=== PATIENT | male | born 1980 | race Caucasian/White ===

== ENCOUNTER 2018-03-14 18:32 | Observation (INO) ==
[2018-03-14] MEDS ORDERED: Naloxone 0.4 MG/ML INJ IVP PRN (20:24)
--- NOTE | 2018-03-14 20:47 | Internal Med History&Physical ---
<Shankar Kaplan - Last Filed: 03/14/18 23:08> Date of Encounter: 03/14/18 Time of Encounter: 20:47 Internal Medicine - H&P: HPI Chief complaint: Dark colored urine Admitted From: Emergency Dept Plans for Post Hospital Care: Home History of present illness: Mr. Scruggs is a 37 year old male with history of hypertension, IV drug use, self history of schizophrenia who presents to the emergency department with 4 day history of dark-colored urine. He says that his urine has appeared the color of iodine for the past 4 days which is atypical for him. This has been associated with vague right sided abdominal pain which radiated to the right flank, and some mild nausea and heartburn. He has also had some vomiting, however he says this is not totally atypical for him. These concerns were initially elicited when he was picked up by [employer] while attempting to steal a car. His pain is mild in nature, and not particularly irritating. He states that he has had very poor appetite in the past week, and while he has had no trouble drinking fluids, he is homeless and has poor access to them. He does not admit to difficulty eating or holding food down. He does feel that his skin has had a yellow discoloration for the past week, which he believes in improving. His only other acute complaints at this time are a feeling of drowsiness which he feels has been present for two to three days. The patient does have a history of IVDU, and says that he was had not used IV drugs for 4 years until about 4 days ago when he used IV meth for the first time. In addition to this, the patient says that he has a history of heavy alcohol consumption for the past 15 years. Although he says that he hasn't had a drink in about 5 days, he says that on a normal day he has at least about 6 beers. He says that he and his girlfriend are homeless, and have been so for the past two months. He has no sick contacts. In the ED at [facility], he received labs which demonstrated sodium 134 potassium 5.8 chloride 102 bicarbonate 27 nightly 7 creatinine 1.07 glucose 80. CBC was essentially normal, however hepatic panel demonstrated AST 174 and ALTs greater than 500. His albumin was 3.3 and hit a bilirubin of 8.7 with direct bilirubin 4.5 and indirect 4.2. The patient additionally had pneumonia level LIX and INR 1.3. His UA demonstrated large bilirubin and granular casts. A CT of his abdomen and pelvis demonstrated a contracted gallbladder with possible mild intrahepatic biliary prominence. He was transferred to [facility] for further workup and observation. Past Med Surg Social Fam HX - Past Medical History Medical history: hypertension, other Additional medical history: GOUT Psychiatric history: anxiety, panic disorder - Past Surgical History Additional surgical history: PE tubes - Social History Smoking Status: Current every day smoker Smokeless Tobacco Status: No Alcohol use: occasionally, recent Drug use: methamphetamine - Family History Maternal Grandmother Hx Family Cardiac Disorders: Yes Internal Medicine - H&P: Meds Buprenorphine HCl [Subutex] 2 mg SL BID 12/07/15 [History] Escitalopram [Lexapro] 10 mg PO DAILY 03/14/18 [History] 3 Allergy/AdvReac Type Severity Reaction Status Date / Time Amoxicillin Allergy Anaphylaxis Verified 05/02/16 20:57 codeine Allergy Nausea Verified 05/02/16 20:57 Penicillins [PCN] Allergy Anaphylaxis Verified 05/02/16 20:57 All Systems PM: A 10-system review of systems was performed and is negative for pertinent findings except as documented above in the HPI. Review of systems: Constitutional: Denies fevers, chills, weight loss. Admits to generalized fatigue Head/Neck: Denies VO, neck stiffness EENT: Denies vision changes/blurriness, rhinorrhea, congestion, sore throat CVS: Denies chest pain, palpitations, BENITO, orthopnea, edema, PND Pulm: Denies SOB, cough, sputum, hemoptysis, wheezing GI: Denies diarrhea, constipation, melena, hematemasis. Admits to some abdominal pain, nausea and some limited vomiting. : Denies dysuria, increased frequency, urgency, hematuria. Admits to dark colored urine Heme: Denies ease of bleeding or bruising MSK: Denies joint pain, limited ROM Skin: Denies rashes, ulcers, color changes Neuro: Denies VO, paresthesias, focal deficits, ataxia - Constitutional Vitals: Temp Pulse Resp BP Pulse Ox 97.7 F 73 18 141/83 96 03/14/18 20:10 03/14/18 20:10 03/14/18 20:10 03/14/18 20:10 03/14/18 20:10 Exam: Gen: Vitals noted. No acute distress. Skin: Jaundiced appearing, no rash or petechiae HEENT: Normocephalic, atraumatic. Marked scleral icterus Neck: Supple. No adenopathy. Cardiac: RRR, no murmur, +S1/S2 Pulmonary: CTA bilaterally, no wheezes, rales or rhonchi, equal chest expansion Abdomen: soft, nontender, no guarding Back: Nontender throughout. MSK: ROM intact, no joint swelling noted Extremities: no BLE edema, nontender calf, no cyanosis or clubbing Neuro: moves all extremities, no focal deficits. A&Ox3 Psych: Appropriate mood and behavior Internal Med - H&P Results - Labs CBC & Chem 7: 03/14/18 21:06 - Assessment and plan (1) Elevated LFTs Current Visit: Yes Status: Acute Assessment and plan: Elevated liver enzymes, acute Suspected hepatitis, unclear etiology Etiology may be secondary to viral hepatitis versus alcoholic hepatitis Alcoholic hepatitis is less likely considering AST low and ALT high AST 174, ALT >500, Alk Phos 88, Total Bilirubin 8.7, Direct Bili 4.5, Indirect Bili 4.2. Inr 1.3. Ammonia 59 Initial Acetaminophen and Salicylate labs are negative for elevation CT Abdomen/Pelvis Demonstrates gallbladder contraction, possible mild intrahepatic biliary prominence Plan -Continue supportive care. There is no apparent fulminant hepatic failure at this time. -Ivf, recheck LFTs. NPO At midnight -Lactulose 20mg BID for hyperammonemia -GI consult in AM for management and possible MRCP/ERCP (2) Hyperkalemia Current Visit: Yes Status: Acute Assessment and plan: Hyperkalemia, unclear etiology Patient does not appear to have any acute kidney injury at this time, however unknown baseline function He received 2L bolus in the ED at [facility], we will continue maintenance fluids at this time Recheck BMP this evening, and we will give lactulose for Ammonia. Pending results and potassium level, kayexelate may be indicated At this time, he has no cardiac complications continue to monitor (3) Abdominal pain Current Visit: Yes Status: Acute Assessment and plan: Right upper quadrant abdominal pain CT abd/pelvis has nonspecific gallbladder findings We will plan for serial abdominal exams at this time and monitor GI consult in the morning, consider Surgical consult if necessary. Qualifiers: Abdominal location: right upper quadrant Qualified Code(s): R10.11 - Right upper quadrant pain (4) IVDU (intravenous drug user) Current Visit: Yes Status: Acute Assessment and plan: History of IVDU Currently no obvious indication of systemic infection, however he is high risk of Viral hepatitis and HIV Serology is currently pending We will monitor vitals, watch for evidence of infection Social work consult (5) Alcoholism Current Visit: Yes Status: Acute Assessment and plan: History of heavy alcohol use, >6 beers per day according to patient Last drink was 5 days ago. Patient has no known history of DTs We will start a CIWA protocol, nutritional supplementation (6) Depression Current Visit: Yes Status: Acute Assessment and plan: Depression with psychotic features according to patient He mentions auditory hallucinations which are somewhat chronic to him We will continue home med at this time, consider psych consult if the patient continues to worsen Qualifiers: Depression Type: unspecified Qualified Code(s): F32.9 - Major depressive disorder, single episode, unspecified (7) Hypertension Current Visit: Yes Status: Acute Assessment and plan: Stable Qualifiers: Hypertension type: essential hypertension Qualified Code(s): I10 - Essential (primary) hypertension (8) DVT prophylaxis Current Visit: Yes Status: Acute Assessment and plan: SQ Heparin - Time Spent With Patient Total time spent is greater than 50% in coordination of care (as documented) at patient's floor/unit and/or counseling patient: <Juan Francisco Cheema - Last Filed: 03/15/18 08:05> Date of Encounter: 03/15/18 Internal Medicine - H&P: HPI History of present illness: Mr. Scruggs is a 37 year old male All Systems PM: A 10-system review of systems was performed and is negative for pertinent findings except as documented above in the HPI. - Constitutional Vitals: Temp Pulse Resp BP Pulse Ox 98.1 F 48 18 135/89 97 03/15/18 03:07 03/15/18 03:07 03/15/18 03:07 03/15/18 03:07 03/15/18 03:07 Internal Med - H&P Results - Labs CBC & Chem 7: 03/15/18 03:59 03/15/18 03:59 Labs: Short CBC 03/15/18 Range/Units 03:59 WBC 7.3 (4.3-11.1) K/mcL Hgb 14.7 (12.9-16.9) g/dL Hct 42.5 (37.5-50.1) % Plt Count 253 (140-400) K/mcL Neutrophils # 3.0 (1.6-8.9) K/mcL BMP 03/14/18 03/14/18 03/15/18 21:06 22:50 03:59 Sodium Cancelled 133 L 137 Potassium Cancelled 3.9 D 4.3 Chloride Cancelled 102 103 Carbon Dioxide Cancelled 25 28 BUN Cancelled 7 7 Creatinine Cancelled 1.00 1.06 Glucose Cancelled 106 H 78 Calcium Cancelled 8.6 8.5 L Cardiac Enzymes 03/14/18 Range/Units 21:06 Troponin I < 0.03 (< 0.04) ng/mL Liver Function 03/15/18 03/15/18 Range/Units 03:59 03:59 Total Bilirubin 9.8 H (0.3-1.0) mg/dL Direct Bilirubin 6.2 H (0.0-0.2) mg/dL GGT 88 H (2-30) Units/L AST 119 H (13-39) Units/L ALT > 500 H (7-52) Units/L Alkaline Phosphatase 92 (34-104) Units/L Albumin 3.0 L (3.5-5.7) g/dL - Assessment and plan (1) Elevated LFTs Current Visit: Yes Status: Inactive (2) Abdominal pain Current Visit: Yes Status: Inactive Qualifiers: Abdominal location: right upper quadrant Qualified Code(s): R10.11 - Right upper quadrant pain (3) Hyperkalemia Current Visit: Yes Status: Acute (4) IVDU (intravenous drug user) Current Visit: Yes Status: Acute (5) Alcoholism Current Visit: Yes Status: Acute (6) Hypertension Current Visit: Yes Status: Acute Qualifiers: Hypertension type: essential hypertension Qualified Code(s): I10 - Essential (primary) hypertension (7) Depression Current Visit: Yes Status: Acute Qualifiers: Depression Type: unspecified Qualified Code(s): F32.9 - Major depressive disorder, single episode, unspecified (8) DVT prophylaxis Current Visit: Yes Status: Acute - Time Spent With Patient Total time spent is greater than 50% in coordination of care (as documented) at patient's floor/unit and/or counseling patient: - Attending Attestation Patient seen and examined. Charts including labs were reviewed. Case discussed with resident. Agree with assessment and plan. We will admit and continue supportive care for possible acute hepatitis in the setting of recent IV drug abuse. Consider GI consult for the morning.
[2018-03-14] MEDS ORDERED: *HR* LORazepam 2 MG/ML VIAL IVP PRN ×2 (20:56)
[2018-03-14] MEDS ORDERED: *HR* Promethazine 25 MG/ML VIAL IVP PRN (20:56)
[2018-03-14] MEDS ORDERED: 0.9 % Sodium Chloride 1,000 ML IV SCH (21:00)
[2018-03-14] MEDS: *HR* Heparin 5,000 UNIT/ML VIAL SQ SCH (21:51)
[2018-03-14] MEDS: 0.9 % Sodium Chloride 1,000 ML IV SCH (21:51)
[2018-03-14] MEDS: Lactulose Oral Soln 20 GM/30 ML UDC PO SCH (21:51)
[2018-03-14 22:04] LABS: HIV-1&2 Antibody & p24 Ag Nonreactive (Nonreactive); Hepatitis B Surface Antigen Nonreactive (Nonreactive)
[2018-03-14] MEDS: *HR* Buprenorphine HCl 2 MG SUBLINGUAL TABLET SL SCH (22:19)
[2018-03-14 23:27] LABS: BUN/Creatinine Ratio 7 (6-26); Blood Urea Nitrogen 7 mg/dL (6-20); Calcium 8.6 mg/dL (8.6-10.3); Carbon Dioxide 25 mEq/L (23-29); Chloride 102 mEq/L (98-107); Glucose 106 mg/dL (70-105); Osmolality,Calculated 274 (280-300); Potassium 3.9 mEq/L (3.5-5.1); Sodium 133 mEq/L (136-145); eGFR For Non-African Americans > 60 (> 60)
[2018-03-15 04:26] LABS: Basophils # 0.1 K/mcL (0.0-0.2); Basophils % 1.5 %; Eosinophils # 0.5 K/mcL (0.0-0.6); Eosinophils % 6.7 %; Hematocrit 42.5 % (37.5-50.1); Hemoglobin 14.7 g/dL (12.9-16.9); Immature Granulocytes % 0.6 % (0-4); Lymphocytes % 40.6 %; Mean Corpuscular HGB Conc 34.6 g/dL (31.6-35.5); Mean Corpuscular Hemoglobin 31.1 pg (28.0-33.3); Mean Corpuscular Volume 89.9 fL (83.0-100.0); Mean Platelet Volume 11.4 fL (9.4-12.4); Monocytes # 0.7 K/mcL (0.0-1.3); Monocytes % 9.4 %; Platelet Count 253 K/mcL (140-400); Red Blood Count 4.73 M/mcL (4.19-5.50); Segmented Neutrophils % 41.2 %
[2018-03-15 04:50] LABS: Gamma Glutamyl Transpeptidase 88 Units/L (2-30)
[2018-03-15 04:51] LABS: Alanine Aminotransferase > 500 Units/L (7-52); Alkaline Phosphatase 92 Units/L (34-104); Aspartate Amino Transferase 119 Units/L (13-39); BUN/Creatinine Ratio 7 (6-26); Bilirubin,Direct 6.2 mg/dL (0.0-0.2); Bilirubin,Indirect 3.6 mg/dL (0.0-1.2); Bilirubin,Total 9.8 mg/dL (0.3-1.0); Blood Urea Nitrogen 7 mg/dL (6-20); Calcium 8.5 mg/dL (8.6-10.3); Carbon Dioxide 28 mEq/L (23-29); Chloride 103 mEq/L (98-107); Globulin 3.1 g/dL (2.4-3.5); Glucose 78 mg/dL (70-105); Magnesium 1.8 mg/dL (1.6-2.6); Osmolality,Calculated 281 (280-300); Potassium 4.3 mEq/L (3.5-5.1); Sodium 137 mEq/L (136-145); Total Protein 6.1 g/dL (6.4-8.9); eGFR For Non-African Americans > 60 (> 60)
[2018-03-15 05:02] LABS: Hepatitis A Antibody IgM Reactive (Nonreactive)
[2018-03-15] MEDS: 0.9 % Sodium Chloride 1,000 ML IV SCH (05:55)
[2018-03-15] MEDS: *HR* Heparin 5,000 UNIT/ML VIAL SQ SCH ×3 (05:56→21:02)
[2018-03-15 06:03] LABS: Hepatitis B Core IgM Reactive (Nonreactive)
[2018-03-15 06:04] LABS: Hepatitis C Virus Antibody Reactive (Nonreactive)
[2018-03-15 08:22] LABS: INR 1.2; Prothrombin Time 13.2 Seconds (9.4-12.1)
[2018-03-15] MEDS: Lactulose Oral Soln 20 GM/30 ML UDC PO SCH ×2 (08:36→21:02)
[2018-03-15] MEDS: *HR* Buprenorphine HCl 2 MG SUBLINGUAL TABLET SL SCH ×2 (08:37→21:02)
--- NOTE | 2018-03-15 09:46 | Gastroenterology Consult Note ---
<Annette Pascual - Last Filed: 03/15/18 14:01> Date of Encounter: 03/15/18 Time of Encounter: 09:38 - Assessment and plan (2) Abdominal pain Status: Acute Assessment and plan: Right upper quadrant abdominal pain intermittent for 3 months. Likely secondary to acute hepatitis and chronic hepatitis. abdominal CT demonstrate gallbladder protracted with possible mild intrahepatic biliary prominence -See plan above Qualifiers: Abdominal location: epigastric Qualified Code(s): R10.13 - Epigastric pain (3) IVDU (intravenous drug user) Status: Acute Assessment and plan: current IV drug user of methamphetamine which he recently started. He was clean for a while because he previously injected heroin for about 8 years. -He was counseled on cessation of drug use (4) Alcoholism Status: Acute Assessment and plan: He is the current drinker since he was 14 years old of 6 to 20 beers a day. -He is on CIWA protocol. Counseled on alcohol cessation. Continue thymine. (5) Hepatitis Status: Acute Assessment and plan: 37-year-old male with history of IV drug use reported 5 days of dark urine. Additional fatigue, jaundice, scleral icterus. 3 months of intermittent right upper quadrant pain. This is likely acute hepatitis A infection. Hepatitis A positive hepatitis B core IgM Ab positive hepatitis C Ab positive AST 119, ALT>500, alkaline phosphatase 92, PT 13.2, INR 1.2 bilirubin 9.8, direct bilirubin 6.2, indirect bilirubin 3.[address] demonstrate gallbladder protracted with possible mild intrahepatic biliary prominence examination: scleral icterus, jaundice, soft abdomen, nontender, bowel sounds present plan: recommend symptomatic management, regular diet, IV fluids - Time Spent With Patient Total time spent is greater than 50% in coordination of care (as documented) at patient's floor/unit and/or counseling patient: GI History of Present Illness - Data of Consult Consult date: 03/15/18 Requesting Physician: Alexey Lancaster MD - Consult Narrative Reason for consult: Hepatitis ABC positive History of present illness: Mr. Scruggs is a 37 year old male with past medical history of IV drug use who presented to [facility] complaining of darker urine. Gastroenterology was consulted due to labs showing hepatitis A, B, C positive. Upon examination the patient reported that the past 5 days he has noticed he has had darker urine. He has had intermittent right upper quadrant pain for the past 3 to 4 months. Nothing exacerbates the pain. He is also noticed skin discoloration. Admitted increased fatigue. Denies fever, chills, nausea, vomiting, diarrhea, melena, hematachezia, hematemasis. He has never had hepatitis A before and has not had contact with anyone whom has it. He is current IV drug user of methamphetamine which he recently started. He was clean for a while because he previously injected heroin for about 8 years. He is the current drinker since he was 14 years old of 6 to 20 beers a day. His current smoker of about 5 cigarettes a day. Past Med Surg Social Fam HX - Past Medical History Attestation: Yes The following information was validated with the patient. Source: patient Medical history: hypertension, other Additional medical history: GOUT Psychiatric history: anxiety, panic disorder - Past Surgical History Surgical History: no surgical history Additional surgical history: PE tubes - Social History Smoking Status: Current every day smoker Packs per day: 1/3 pack Smokeless Tobacco Status: No Alcohol use: heavy, recent Drug use: methamphetamine, IV Drug Use - Family History Maternal Grandmother Hx Family Cardiac Disorders: Yes - Gastrointestinal Gastrointestinal: Present: abdominal pain. Absent: constipation, diarrhea, hematemesis, hematochezia, melena, nausea, vomiting - Constitutional Constitutional: fatigue, no anorexia, no fever(s) - EENT Eyes: Yellow Discoloration Nose, mouth and throat: Absent: dysphagia - Cardiovascular Cardiovascular ROS: Absent: chest pain, palpitations - Respiratory Respiratory IM: Absent: cough, dyspnea - Genitourinary Genitourinary: Present: change in color (Dark urine). Absent: Urinary frequency - Neurological ROS Neurological GI: Absent: confusion, dizziness, headache(s) - Musculoskeletal Musculoskeletal ROS GI: Absent: back pain - Integumentary Integumentary GI: Present: jaundice. Absent: pruritis, rash - Psychiatric ROS Psychiatric GI: Present: anxiety - Endocrine Endocrine IM: Present: fatigue - Constitutional Vitals: Temp Pulse Resp BP Pulse Ox 98.1 F 59 18 126/90 97 03/15/18 08:03 03/15/18 08:03 03/15/18 08:03 03/15/18 08:03 03/15/18 08:03 Exam: Gen.: Vitals noted. No acute distress. AAOx3 HEENT: oropharynx clear, Normocephalic, atraumatic Neck: Supple. No adenopathy. Cardiac: RRR, no murmur, +S1/S2 Pulmonary: CTA bilaterally, no wheezes, rales or rhonchi, equal chest expansion Abdomen: soft, nontender, Bowel sounds noted, no guarding MSK: ROM intact, no joint swelling noted Extremities: no BLE edema, nontender calf, no cyanosis or clubbing Neuro: A&Ox3, moves all extremities, no focal deficits Psych: Appropriate mood and behavior Results - Labs CBC & Chem 7: 03/15/18 03:59 03/15/18 03:59 Labs: Last Result Calcium 8.5 mg/dL (8.6-10.3) L 03/15/18 03:59 Troponin I < 0.03 ng/mL (< 0.04) 03/14/18 21:06 Entire Visit Hgb 14.7 g/dL (12.9-16.9) 03/15/18 03:59 Hct 42.5 % (37.5-50.1) 03/15/18 03:59 PT 13.2 Seconds (9.4-12.1) H 03/15/18 08:00 Total Bilirubin 9.8 mg/dL (0.3-1.0) H 03/15/18 03:59 AST 119 Units/L (13-39) H 03/15/18 03:59 ALT > 500 Units/L (7-52) H 03/15/18 03:59 - ABG ABG results: PT/INR, D-dimer PT 13.2 Seconds (9.4-12.1) H 03/15/18 08:00 Consult Discharge Plan - Plan Instructions: Alcohol Dependence (GEN) Additional Instructions: G.I. will contact PT with the Follow up APT. Referrals: Salma Marie [Other] - 03/24/18 1:15 pm Mark Cruz MD [Partnered Physician] - (Web request sent on 03/16.) NONE,PCP [Primary Care Provider] - 03/24/18 1:15 pm (Scheduled an appointment with Dr. Moira Marsh in [place], [place] for patient hospital appointment) Prescriptions: RX: Folic Acid 1 mg PO DAILY #30 tablet RX: Gabapentin [Neurontin] 100 mg PO TID 15 Days #45 capsule RX: Thiamine (B-1) [Vitamin B-1] 100 mg PO DAILY #30 tablet <Mark Cruz - Last Filed: 03/26/18 22:07> - Time Spent With Patient Total time spent is greater than 50% in coordination of care (as documented) at patient's floor/unit and/or counseling patient: GI History of Present Illness - Data of Consult Requesting Physician: Alexey Lancaster MD - Consult Narrative History of present illness: Mr. Scruggs is a 37 year old male - Constitutional Vitals: Temp Pulse Resp BP Pulse Ox 98 F 77 16 147/101 96 03/16/18 16:09 03/16/18 16:09 03/16/18 10:12 03/16/18 16:09 03/16/18 16:09 Results - Labs CBC & Chem 7: 03/16/18 05:44 03/16/18 05:44 Labs: Last Result Calcium 8.7 mg/dL (8.6-10.3) 03/16/18 05:44 Troponin I < 0.03 ng/mL (< 0.04) 03/14/18 21:06 Urine Opiates Screen Negative ng/mL ([id number]=[id number]) 03/15/18 21:05 Entire Visit Hgb 14.7 g/dL (12.9-16.9) 03/16/18 05:44 Hct 42.7 % (37.5-50.1) 03/16/18 05:44 PT 12.2 Seconds (9.4-12.1) H 03/16/18 05:44 Total Bilirubin 8.0 mg/dL (0.3-1.0) H 03/16/18 05:44 AST 91 Units/L (13-39) H 03/16/18 05:44 ALT 466 Units/L (7-52) H 03/16/18 05:44 - ABG ABG results: PT/INR, D-dimer PT 12.2 Seconds (9.4-12.1) H 03/16/18 05:44 - Attending Attestation Unfortunate 37 year old male with IVDA has positive hepatitis A IgM, hepatitis B core IgM and positive hepatitis C antibody. Will need follow up as outpatient to see if, he clears hepatitis B or if, it will become chronic for him and will need hepatitis C RNA PCR check with genotype as well. He will need counselling to discontinue his drug habit and stay in abstainance. 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 He understands. No acute intervention except supportive care for now and arrangements to ensure abstainance in the future are alaniz. I examined this patient and my medical decision-making was reviewed with the Resident Physician. I agree with the documented findings, disposition and treatment plan as described except to the extent set forth below.
[2018-03-15 14:17] LABS: Lactate Dehydrogenase 166 Units/L (140-271)
--- NOTE | 2018-03-15 14:20 | Internal Med Progress Note ---
Hospitalist Progress Note - Encounter Date of Encounter: 03/15/18 Time of Encounter: 08:00 - Subjective Interval History: Patient was seen and examined at bedside. Denies abdominal pain, is complaining of hunger. No overnight events. Pain is controlled. Denies fever, chills, nausea, vomiting, diarrhea. - Exam Vitals: Temp Pulse Resp BP Pulse Ox 98.0 F 62 18 140/91 96 03/15/18 11:30 03/15/18 11:30 03/15/18 11:30 03/15/18 11:30 03/15/18 11:30 Exam: General: Patient is alert, oriented, no acute distress, jaundice Head: atraumatic, normocephalic, Eye: normal appearance, PERRL, icteric ENT: mucous membranes moist, normal external ear exam Neck: normal inspection, trachea midline, full ROM, no carotid bruits Chest: normal inspection, symmetric chest rise Respiratory: Good respiratory effort. Bilateral breath sounds are clear without wheezing, crackles, or rhonchi. Cardiovascular: Regular rate and rhythm. s1 and s2 No clicks, rubs, gallops, or murmors. Abdomen: Bowel sounds present normoactive x-4 quadrants. Abdomen is soft, nondistended. no Epigastric tenderness. No guarding or rebound. No organomegaly noted, obese musculoskeletal: Spontaneously moving all extremities. no edema, no calf tenderness Skin: warm, dry, intact. icteric Neuro: Alert and oriented x4. Sensation light touch intact. Cranial nerves 2- 12 is intact. Not aphasic, rapid hand movements intact, [id number] intact, no tremors Psych: Patient's affect is normal - Assessment and Plan (1) Acute hepatitis Current Visit: Yes Status: Acute Assessment and Plan: Hepatitis A positive hepatitis B core IgM Ab positive hepatitis C Ab positive most likely secondary to recent IVDA- shares needles AST 119, ALT>500, alkaline phosphatase 92, PT 13.2, INR 1.2 bilirubin 9.8, direct bilirubin 6.2, indirect bilirubin 3.6 GGT 88 Gi consulted will follow up recommendations will need close follow up as OP HIV non-reactive will continue to trend lfts and Coags (2) Hyperkalemia Current Visit: Yes Status: Acute Assessment and Plan: resolved with IV hydration will continue to monitor electrolytes (3) IVDU (intravenous drug user) Current Visit: Yes Status: Acute Assessment and Plan: recently used IV drugs reports he does share needles HIV negative hepatitis A/B/C positive was counseled on importance of drug abstinence Utox ordered Social work consult (4) Alcoholism Current Visit: Yes Status: Acute Assessment and Plan: History of heavy alcohol use, >6-20 beers per day according to patient Last drink was 5 days ago. Patient has no known history of DTs We will start a CIME protocol thiamine, folic acid (5) Depression Current Visit: Yes Status: Acute Assessment and Plan: on escitalopram 10 mg daily currently denies auditory, visual hallucinations, denies SI or HI (6) DVT prophylaxis Current Visit: Yes Status: Acute Assessment and Plan: SQ Heparin - Time Spent with Patient Total time spent is greater than 50% in coordination of care (as documented) at patient's floor/unit and/or counseling patient: Internal Medicine: Result - Labs CBC & Chem 7: 03/15/18 03:59 03/15/18 03:59 Labs: Short CBC 03/15/18 Range/Units 03:59 WBC 7.3 (4.3-11.1) K/mcL Hgb 14.7 (12.9-16.9) g/dL Hct 42.5 (37.5-50.1) % Plt Count 253 (140-400) K/mcL Neutrophils # 3.0 (1.6-8.9) K/mcL BMP 03/14/18 03/14/18 03/15/18 21:06 22:50 03:59 Sodium Cancelled 133 L 137 Potassium Cancelled 3.9 D 4.3 Chloride Cancelled 102 103 Carbon Dioxide Cancelled 25 28 BUN Cancelled 7 7 Creatinine Cancelled 1.00 1.06 Glucose Cancelled 106 H 78 Calcium Cancelled 8.6 8.5 L Cardiac Enzymes 03/14/18 Range/Units 21:06 Troponin I < 0.03 (< 0.04) ng/mL Liver Function 03/15/18 03/15/18 Range/Units 03:59 03:59 Total Bilirubin 9.8 H (0.3-1.0) mg/dL Direct Bilirubin 6.2 H (0.0-0.2) mg/dL GGT 88 H (2-30) Units/L AST 119 H (13-39) Units/L ALT > 500 H (7-52) Units/L Alkaline Phosphatase 92 (34-104) Units/L Albumin 3.0 L (3.5-5.7) g/dL - ABG Interpretation ABG results: PT/INR, D-dimer PT 13.2 Seconds (9.4-12.1) H 03/15/18 08:00 Consult Discharge Plan - Plan Referrals: NONE,PCP [Primary Care Provider] - 03/24/18 1:15 pm (Scheduled an appointment with Dr. Moira Marsh in [place], [place] for patient hospital appointment) (5) Depression Qualifiers: Depression Type: unspecified Qualified Code(s): F32.9 - Major depressive disorder, single episode, unspecified
[2018-03-15] MEDS: *HR* LORazepam 2 MG/ML VIAL IVP PRN (17:02)
[2018-03-15] MEDS ORDERED: Thiamine (B-1) 100 MG, Folic Acid 1 MG, MVI, adult with vitamin K 10 ML in 0.9 % Sodi... IVPB SCH (18:00)
[2018-03-15 21:47] LABS: Amphetamine Screen,Urine Positive ng/mL (Cutoff=1000); Barbiturate Screen,Urine Negative ng/mL (Cutoff=200); Benzodiazepines Screen,Urine Negative ng/mL (Cutoff=200); Cannabinoid Screen,Urine Negative ng/mL (Cutoff = 50); Cocaine Screen,Urine Negative ng/mL (Cutoff= 300); Opiate Screen,Urine Negative ng/mL (Cutoff=300); Phencyclidine Screen,Urine Negative ng/mL (Cutoff=25)
[2018-03-16] MEDS: *HR* Heparin 5,000 UNIT/ML VIAL SQ SCH ×2 (05:53→15:07)
[2018-03-16 06:08] LABS: Hematocrit 42.7 % (37.5-50.1); Hemoglobin 14.7 g/dL (12.9-16.9); Mean Corpuscular HGB Conc 34.4 g/dL (31.6-35.5); Mean Corpuscular Hemoglobin 30.4 pg (28.0-33.3); Mean Corpuscular Volume 88.4 fL (83.0-100.0); Mean Platelet Volume 11.6 fL (9.4-12.4); Platelet Count 285 K/mcL (140-400); Red Blood Count 4.83 M/mcL (4.19-5.50); Red Cell Distribution Width 17.2 % (11.5-14.5)
[2018-03-16 06:30] LABS: INR 1.1; Prothrombin Time 12.2 Seconds (9.4-12.1)
[2018-03-16 06:35] LABS: Alanine Aminotransferase 466 Units/L (7-52); Albumin 3.1 g/dL (3.5-5.7); Alkaline Phosphatase 105 Units/L (34-104); Aspartate Amino Transferase 91 Units/L (13-39); BUN/Creatinine Ratio 10 (6-26); Bilirubin,Direct 5.1 mg/dL (0.0-0.2); Bilirubin,Indirect 2.9 mg/dL (0.0-1.2); Blood Urea Nitrogen 10 mg/dL (6-20); Calcium 8.7 mg/dL (8.6-10.3); Carbon Dioxide 25 mEq/L (23-29); Chloride 104 mEq/L (98-107); Globulin 3.1 g/dL (2.4-3.5); Glucose 83 mg/dL (70-105); Osmolality,Calculated 278 (280-300); Potassium 4.3 mEq/L (3.5-5.1); Sodium 135 mEq/L (136-145); Total Protein 6.2 g/dL (6.4-8.9); eGFR For Non-African Americans > 60 (> 60)
[2018-03-16] MEDS: *HR* Buprenorphine HCl 2 MG SUBLINGUAL TABLET SL SCH (08:24)
[2018-03-16] MEDS: Lactulose Oral Soln 20 GM/30 ML UDC PO SCH (08:25)
[2018-03-16] MEDS ORDERED: Folic Acid 1 MG TABLET PO SCH (09:00)
[2018-03-16] MEDS ORDERED: Thiamine (B-1) 100 MG TABLET PO SCH (09:00)
[2018-03-16] MEDS: *HR* LORazepam 2 MG/ML VIAL IVP PRN (10:49)
--- NOTE | 2018-03-16 11:37 | Gastroenterology Progress Note ---
<Annette Pascual - Last Filed: 03/16/18 14:08> Date of Encounter: 03/16/18 Time of Encounter: 11:33 - Assessment and plan (1) Acute hepatitis Status: Acute Assessment and plan: 37-year-old male with history of IV drug use reported 5 days of dark urine. Additional fatigue, jaundice, scleral icterus. 3 months of intermittent right upper quadrant pain. This is likely acute hepatitis A infection. Hepatitis A positive hepatitis B core IgM Ab positive hepatitis C Ab positive AST 91 (119), ALT 466 (>500), alkaline phosphatase 105 (92), PT 13.2, INR 1.2 bilirubin 8(9.8), direct bilirubin 6.2, indirect bilirubin 3.[address] demonstrate gallbladder protracted with possible mild intrahepatic biliary prominence examination: scleral icterus, jaundice, soft abdomen, nontender, bowel sounds present plan: patient is improved clinically. He is tolerating oral diet well. He can be discharged today with follow up with G.I. office in 3 weeks. During examination today the patient exhibited drug seeking behavior he was requesting month supply of Ativan. He made other very concerning remarks. (2) Abdominal pain Status: Acute Assessment and plan: Right upper quadrant abdominal pain intermittent for 3 months. Likely secondary to acute hepatitis and chronic hepatitis. abdominal CT demonstrate gallbladder protracted with possible mild intrahepatic biliary prominence -See plan above Qualifiers: Abdominal location: epigastric Qualified Code(s): R10.13 - Epigastric pain (3) IVDU (intravenous drug user) Status: Acute Assessment and plan: current IV drug user of methamphetamine which he recently started. He was clean for a while because he previously injected heroin for about 8 years. -He was counseled on cessation of drug use (4) Alcoholism Status: Acute Assessment and plan: He is the current drinker since he was 14 years old of 6 to 20 beers a day. -He is on CIWA protocol. Counseled on alcohol cessation. Continue thiamine. - Time Spent With Patient Total time spent is greater than 50% in coordination of care (as documented) at patient's floor/unit and/or counseling patient: - Subjective Interval history: Patient seen and examined at bedside. He is alert and oriented times 3. His mother is that bedside. He reports that he feels much improved from when he came in at admission. He denies fever, chills, abdominal pain, nausea, vomiting. - Constitutional Vitals: Temp Pulse Resp BP Pulse Ox 98.1 F 70 16 128/84 97 03/16/18 10:12 03/16/18 10:12 03/16/18 10:12 03/16/18 10:12 03/16/18 10:12 Exam: Gen.: Vitals noted. No acute distress. AAOx3 HEENT: PERRL/EOMI, oropharynx clear, Normocephalic, atraumatic, bilateral scleral icterus and jaundice Neck: Supple. No adenopathy. Cardiac: RRR, no murmur, +S1/S2 Pulmonary: CTA bilaterally, no wheezes, rales or rhonchi, equal chest expansion Abdomen: soft, nontender, Bowel sounds noted, no guarding MSK: ROM intact, no joint swelling noted Extremities: no BLE edema, nontender calf, no cyanosis or clubbing Neuro: A&Ox3, moves all extremities, no focal deficits Psych: Appropriate mood and behavior Results - Labs CBC & Chem 7: 03/16/18 05:44 03/16/18 05:44 Labs: Last Result Calcium 8.7 mg/dL (8.6-10.3) 03/16/18 05:44 Troponin I < 0.03 ng/mL (< 0.04) 03/14/18 21:06 Urine Opiates Screen Negative ng/mL (Pviike=921) 03/15/18 21:05 Entire Visit Hgb 14.7 g/dL (12.9-16.9) 03/16/18 05:44 Hct 42.7 % (37.5-50.1) 03/16/18 05:44 PT 12.2 Seconds (9.4-12.1) H 03/16/18 05:44 Total Bilirubin 8.0 mg/dL (0.3-1.0) H 03/16/18 05:44 AST 91 Units/L (13-39) H 03/16/18 05:44 ALT 466 Units/L (7-52) H 03/16/18 05:44 - ABG ABG results: PT/INR, D-dimer PT 12.2 Seconds (9.4-12.1) H 03/16/18 05:44 Consult Discharge Plan - Plan Instructions: Alcohol Dependence (GEN) Additional Instructions: Albino will contact PT with the Follow up APT. Referrals: Salma Marie [Other] - 03/24/18 1:15 pm Mark Cruz MD [Partnered Physician] - (Web request sent on 03/16.) NONE,PCP [Primary Care Provider] - 03/24/18 1:15 pm (Scheduled an appointment with Dr. Moira Marsh in [place], [place] for patient hospital appointment) Prescriptions: RX: Folic Acid 1 mg PO DAILY #30 tablet RX: Gabapentin [Neurontin] 100 mg PO TID 15 Days #45 capsule RX: Thiamine (B-1) [Vitamin B-1] 100 mg PO DAILY #30 tablet <Mark Cruz - Last Filed: 03/24/18 08:06> - Time Spent With Patient Total time spent is greater than 50% in coordination of care (as documented) at patient's floor/unit and/or counseling patient: - Constitutional Vitals: Temp Pulse Resp BP Pulse Ox 98 F 77 16 147/101 96 03/16/18 16:09 03/16/18 16:09 03/16/18 10:12 03/16/18 16:09 03/16/18 16:09 Results - Labs CBC & Chem 7: 03/16/18 05:44 03/16/18 05:44 Labs: Last Result Calcium 8.7 mg/dL (8.6-10.3) 03/16/18 05:44 Troponin I < 0.03 ng/mL (< 0.04) 03/14/18 21:06 Urine Opiates Screen Negative ng/mL (Xhtlgy=059) 03/15/18 21:05 Entire Visit Hgb 14.7 g/dL (12.9-16.9) 03/16/18 05:44 Hct 42.7 % (37.5-50.1) 03/16/18 05:44 PT 12.2 Seconds (9.4-12.1) H 03/16/18 05:44 Total Bilirubin 8.0 mg/dL (0.3-1.0) H 03/16/18 05:44 AST 91 Units/L (13-39) H 03/16/18 05:44 ALT 466 Units/L (7-52) H 03/16/18 05:44 - ABG ABG results: PT/INR, D-dimer PT 12.2 Seconds (9.4-12.1) H 03/16/18 05:44 - Attending Attestation Unfortunate patient with IVDA who comes in jaundiced with acute hepatitis A uncomplicated. No encephalopathy. Supportive care. Outbreak of hepatitis A in the state. Discussed at length with patient about changing his ways. I have personally performed a face to face evaluation on this patient. I have reviewed and agree with the care plan. History and Exam by me shows:
--- NOTE | 2018-03-16 12:51 | Discharge Summary ---
- NOTES TO OUTPATIENT PROVIDER Notes to Outpatient Provider: follow up with GI for acute hepatitis A, B, C needs to have viral loads measured once transminitis has improved. follow LFTS Date of Encounter: 03/16/18 Time of Encounter: 12:47 - Discharge Diagnosis (1) Acute hepatitis Priority: Primary Status: Acute (2) Elevated LFTs Priority: Secondary Status: Inactive (3) Abdominal pain Priority: Secondary Status: Inactive Qualifiers: Abdominal location: right upper quadrant Qualified Code(s): R10.11 - Right upper quadrant pain (4) Hyperkalemia Priority: Secondary Status: Acute (5) IVDU (intravenous drug user) Priority: Secondary Status: Acute (6) Alcoholism Priority: Secondary Status: Acute (7) Hypertension Priority: Secondary Status: Acute Qualifiers: Hypertension type: essential hypertension Qualified Code(s): I10 - Essential (primary) hypertension (8) Depression Priority: Secondary Status: Acute Qualifiers: Depression Type: unspecified Qualified Code(s): F32.9 - Major depressive disorder, single episode, unspecified (9) DVT prophylaxis Priority: Secondary Status: Acute Hospital course: Mr. Scruggs is a 37 year old male with history of hypertension, IV drug use, self history of schizophrenia who presents to the emergency department from [facility] with 4 day history of dark-colored urine. was found have In the ED at [facility], he received labs which demonstrated sodium 134 potassium 5.8 chloride 102 bicarbonate 27 nightly 7 creatinine 1.07 glucose 80. CBC was essentially normal, however hepatic panel demonstrated AST 174 and ALTs greater than 500. His albumin was 3.3 and hit a bilirubin of 8.7 with direct bilirubin 4.5 and indirect 4.2. INR 1.3. His UA demonstrated large bilirubin and granular casts. A CT of his abdomen and pelvis demonstrated a contracted gallbladder with possible mild intrahepatic biliary prominence. He was transferred to [facility] for further workup and observation. while at [facility] hepatitis A/B/C was positive. hyperkalemia resolved with hydration, transaminitis trended down. coagulation proile remained stable. GI was consulted and recommended supportive management with OP follow up for hepatitis B/C and to follow viral loads as OP. HIV was negative. Utox was positive for amphetamines. he uses ETOH every day and CIWA protocol was activated during admission. he reported that he is homeless, was due to return to [facility]. mother at bedside offered him to stay with her however declined and complained of depression and hallucitations. Psych was consulted , "The patient is on Subutex for opiate dependence benzodiazepines are relatively contraindicated. He reports that reducing anxiety helps with this. The patient could be considered for gabapentin 100 mg 3 times a day or baclofen 10 mg 3 times a day when necessary another option is topiramate but the patient has liver dysfunction. The patient should be encouraged to return to his Suboxone/Subutex prescriber and another trial of medicine could be considered. At this point the patient does not require psychiatric hospitalization rate the patient does not require a sitter. The patient may choose to have psychiatric follow-up." he was cleared for discharge. gabapentin 100 mg TID was prescribed for 15 days as per psych recommendations. he was counseled on alcohol, smoking and illicit drug abstinence. SW was consulted and he was offered assistance once dischaged for housing PIR smade appointments with PCP and GI for OP follow up. Discharge discussed with: patient, nurse Time spent discussing smoking cessation with patient: more than 10 minutes - Time Spent with Patient Total time spent providing and/or coordinating discharge services: Less than 30 minutes - Discharge Medications Prescriptions: Folic Acid 1 mg PO DAILY #30 tablet Thiamine (B-1) [Vitamin B-1] 100 mg PO DAILY #30 tablet Home Medications: Escitalopram [Lexapro] 10 mg PO DAILY 03/14/18 [History] Buprenorphine HCl [Subutex] 8 mg SL BID 03/15/18 [History] raNITIdine HCl [Zantac] 150 mg PO BID 03/15/18 [History] Folic Acid 1 mg PO DAILY #30 tablet 03/16/18 [Rx] Gabapentin [Neurontin] 100 mg PO TID 15 Days #45 capsule 03/16/18 [Rx] Thiamine (B-1) [Vitamin B-1] 100 mg PO DAILY #30 tablet 03/16/18 [Rx] Allergies/Adverse Reactions: 3 Allergy/AdvReac Type Severity Reaction Status Date / Time Amoxicillin Allergy Anaphylaxis Verified 05/02/16 20:57 codeine Allergy Nausea Verified 05/02/16 20:57 Penicillins [PCN] Allergy Anaphylaxis Verified 05/02/16 20:57 Date of admission: 03/14/18 20:07 Primary care physician: PCP NONE Consults: 03/14/18 20:53 Consult to Nutrition [CONS] Routine Comment: Consulting Provider: NUTRITION Reason for Dietary Consult: Other Other:: lost 30 pounds over 3 months Consult to Health Information Systems Technician [CONS] Routine Reason for SW Consult: homeless, recent drug & alcohol use 03/15/18 07:32 Consult to Gastroenterology [CONS] Routine Consulting Provider: Gastroenterology Arianna Reason for Consult: hepatitis A,B,C positive Call Completed: No - Constitutional Vitals: Temp Pulse Resp BP Pulse Ox 98.1 F 70 16 128/84 97 03/16/18 10:12 03/16/18 10:12 03/16/18 10:12 03/16/18 10:12 03/16/18 10:12 Exam: General: Patient is alert, oriented, no acute distress, jaundice Head: atraumatic, normocephalic, Eye: normal appearance, PERRL, icteric ENT: mucous membranes moist, normal external ear exam Neck: normal inspection, trachea midline, full ROM, no carotid bruits Chest: normal inspection, symmetric chest rise Respiratory: Good respiratory effort. Bilateral breath sounds are clear without wheezing, crackles, or rhonchi. Cardiovascular: Regular rate and rhythm. s1 and s2 No clicks, rubs, gallops, or murmors. Abdomen: Bowel sounds present normoactive x-4 quadrants. Abdomen is soft, nondistended. no Epigastric tenderness. No guarding or rebound. No organomegaly noted, obese musculoskeletal: Spontaneously moving all extremities. no edema, no calf tenderness Skin: warm, dry, intact. icteric Neuro: Alert and oriented x4. Sensation light touch intact. Cranial nerves 2- 12 is intact. Not aphasic, rapid hand movements intact, [id number] intact, no tremors Psych: Patient's affect is normal - Patient Status Disposition: Home, Self-Care Condition: Fair Functional capacity at discharge: independent ambulation Overall status at discharge: patient is progressing back to baseline - Discharge Instructions Follow Up With: Salma Marie [Other] - 03/24/18 1:15 pm Mark Cruz MD [Partnered Physician] - (Web request sent on 03/16.) NONE,PCP [Primary Care Provider] - 03/24/18 1:15 pm (Scheduled an appointment with Dr. Moira Marsh in [place], [place] for patient hospital appointment) Additional Instructions: Marlo.Cate. will contact PT with the Follow up APT. - Diet and Activity Activity: increase activity as tolerated Diet: other (low fat )
[2018-03-16] MEDS ORDERED: Mag Hydrox/Al Hydrox/Simeth 30 ML UDC PO ONE (14:30)
[2018-03-16 16:11] VITALS: BP 147/101
--- NOTE | 2018-03-16 16:45 | Consult Note ---
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 Scruggs is a 37 year old male ID the patient is a 37-year-old white male. He is currently followed liver dysfunction. History of present illness. This patient has been treated for opiate dependence and tells us that he has been on Subutex this is prescribed by a Dr. Marion seen in [facility] who is a family doctor. The patient tells us that he had auditory hallucinations over a period of time he also has decreased hearing bilaterally and reports tinnitus. When there is ringing in the ear or there is background sounds he hears a voice or hears music he recognizes that this is not and external stimuli but rather his interpretation of. The patient would like alprazolam or Ativan for this in the past he has taken gabapentin and has not been on baclofen or topiramate. The patient has been to skilled nursing but not present while in skilled nursing he has not been treated for this. The patient has been offered the opportunity to go stay with his mother. He says that he has been homeless for about a year. The patient has a intelligence officer basic and says he has 6 months hangover head so he must comply he reports in the past someone tried to treated with Abilify. He reports the past he was treated with Xanax and developed a problem with heroin and seizure. The patient has insight into these hallucinations and did not report other delusions that accompany. CC: Alexey Lancaster MD Past Med Surg Social Fam HX - Past Medical History Medical history: hypertension, other - Past Psychiatric History Psychiatric history: Reports: other - Past Surgical History Surgical History: no surgical history - Social History Smoking Status: Current every day smoker Smokeless Tobacco Status: No Alcohol use: heavy, recent Drug use: methamphetamine, IV Drug Use Occupational status: unemployed Current living situation: Homeless Activity Level: Independent ambulation Recent Out of Country Travel Within the Last 8 Weeks: No Exposure or Possible Exposure to Illness During Travel: No - Family History Maternal Grandmother Hx Family Cardiac Disorders: Yes Medications & Allergies Escitalopram [Lexapro] 10 mg PO DAILY 03/14/18 [History] Buprenorphine HCl [Subutex] 8 mg SL BID 03/15/18 [History] raNITIdine HCl [Zantac] 150 mg PO BID 03/15/18 [History] Folic Acid 1 mg PO DAILY #30 tablet 03/16/18 [Rx] Thiamine (B-1) [Vitamin B-1] 100 mg PO DAILY #30 tablet 03/16/18 [Rx] 3 Allergy/AdvReac Type Severity Reaction Status Date / Time Amoxicillin Allergy Anaphylaxis Verified 05/02/16 20:57 codeine Allergy Nausea Verified 05/02/16 20:57 Penicillins [PCN] Allergy Anaphylaxis Verified 05/02/16 20:57 Review of Systems Psychiatric: Reports: auditory hallucinations Psychiatry Exam - Constitutional Vitals: Temp Pulse Resp BP Pulse Ox 98 F 77 16 147/101 96 03/16/18 16:09 03/16/18 16:09 03/16/18 10:12 03/16/18 16:09 03/16/18 16:09 General appearance: age & developmentally appropriate, well-groomed, well- nourished - Musculoskeletal Gait: normal Station: relaxed Strength & Tone: normal for patient - Psychiatric Patient Orientation: Yes Person, Yes Time, Yes Place Level of alertness: Alert Behavior: calm, cooperative Psychomotor activity: Normal Eye Contact: Maintains Eye Contact Mood Description: Euthymic/stable Affect description: congruent with mood, full range Speech Volume: Normal Speech pattern: normal rate, normal rhythm, normal tone, fluent, spontaneous Language & Vocabulary: consistent with education Thought Process: Linear, Goal Oriented Thought Content: No Suicidal ideation, No Homicidal ideation, No Overt delusions Perceptual Disturbances: Yes Auditory hallucinations, No Visual hallucinations Attention Span Ability: Capable of Focused Attention Memory Description: Grossly Intact Patient Reliability: Questionable Historian Fund of knowledge: Yes abstraction ability, Yes aware of current events Intelligence Estimate: Average Judgment: Fair Insight: Full Results - Drug Levels and Toxicology Drug Levels and Toxicology: Drug Levels and Toxicity 03/15/18 21:05 Urine Opiates Screen Negative Ur Barbiturates Screen Negative Ur Phencyclidine Scrn Negative Ur Amphetamines Screen Positive H U Benzodiazepines Scrn Negative Urine Cocaine Screen Negative U Marijuana (THC) Screen Negative - Labs Labs: Laboratory Last Values WBC 7.8 K/mcL (4.3-11.1) 03/16/18 05:44 RBC 4.83 M/mcL (4.19-5.50) 03/16/18 05:44 Hgb 14.7 g/dL (12.9-16.9) 03/16/18 05:44 Hct 42.7 % (37.5-50.1) 03/16/18 05:44 MCV 88.4 fL (83.0-100.0) 03/16/18 05:44 MCH 30.4 pg (28.0-33.3) 03/16/18 05:44 MCHC 34.4 g/dL (31.6-35.5) 03/16/18 05:44 RDW 17.2 % (11.5-14.5) H 03/16/18 05:44 Plt Count 285 K/mcL (140-400) 03/16/18 05:44 MPV 11.6 fL (9.4-12.4) 03/16/18 05:44 Immature Gran % 0.6 % (0-4) 03/15/18 03:59 Seg Neutrophils % 41.2 % 03/15/18 03:59 Lymphocytes % 40.6 % 03/15/18 03:59 Monocytes % 9.4 % 03/15/18 03:59 Eosinophils % 6.7 % 03/15/18 03:59 Basophils % 1.5 % 03/15/18 03:59 Neutrophils # 3.0 K/mcL (1.6-8.9) 03/15/18 03:59 Lymphocytes # 3.0 K/mcL (0.6-4.6) 03/15/18 03:59 Monocytes # 0.7 K/mcL (0.0-1.3) 03/15/18 03:59 Eosinophils # 0.5 K/mcL (0.0-0.6) 03/15/18 03:59 Basophils # 0.1 K/mcL (0.0-0.2) 03/15/18 03:59 PT 12.2 Seconds (9.4-12.1) H 03/16/18 05:44 INR 1.1 03/16/18 05:44 Sodium 135 mEq/L (136-145) L 03/16/18 05:44 Potassium 4.3 mEq/L (3.5-5.1) 03/16/18 05:44 Chloride 104 mEq/L (98-107) 03/16/18 05:44 Carbon Dioxide 25 mEq/L (23-29) 03/16/18 05:44 BUN 10 mg/dL (6-20) 03/16/18 05:44 Creatinine 0.97 mg/dL (0.70-1.30) 03/16/18 05:44 Est GFR ( Amer) > 60 (> 60) 03/16/18 05:44 Est GFR (Non-Af Amer) > 60 (> 60) 03/16/18 05:44 BUN/Creatinine Ratio 10 (6-26) 03/16/18 05:44 Glucose 83 mg/dL (70-105) 03/16/18 05:44 POC Glucose 88 mg/dL (70-99) 03/15/18 21:08 Calculated Osmolality 278 (280-300) L 03/16/18 05:44 Calcium 8.7 mg/dL (8.6-10.3) 03/16/18 05:44 Magnesium 1.8 mg/dL (1.6-2.6) 03/15/18 03:59 Total Bilirubin 8.0 mg/dL (0.3-1.0) H 03/16/18 05:44 Direct Bilirubin 5.1 mg/dL (0.0-0.2) H 03/16/18 05:44 Indirect Bilirubin 2.9 mg/dL (0.0-1.2) H 03/16/18 05:44 GGT 88 Units/L (2-30) H 03/15/18 03:59 AST 91 Units/L (13-39) H 03/16/18 05:44 ALT 466 Units/L (7-52) H 03/16/18 05:44 Alkaline Phosphatase 105 Units/L (34-104) H 03/16/18 05:44 Lactate Dehydrogenase 166 Units/L (140-271) 03/15/18 03:59 Troponin I < 0.03 ng/mL (< 0.04) 03/14/18 21:06 B-Natriuretic Peptide 31 pg/mL (Less than 100) 03/15/18 03:59 Serum Total Protein 6.2 g/dL (6.4-8.9) L 03/16/18 05:44 Albumin 3.1 g/dL (3.5-5.7) L 03/16/18 05:44 Globulin 3.1 g/dL (2.4-3.5) 03/16/18 05:44 Albumin/Globulin Ratio 1.0 (1.1-2.2) L 03/16/18 05:44 Urine Opiates Screen Negative ng/mL (Nxwfam=853) 03/15/18 21:05 Ur Barbiturates Screen Negative ng/mL (Gbgmns=238) 03/15/18 21:05 Ur Phencyclidine Scrn Negative ng/mL (Cutoff=25) 03/15/18 21:05 Ur Amphetamines Screen Positive ng/mL (Dptemw=4173) H 03/15/18 21:05 U Benzodiazepines Scrn Negative ng/mL (Wujxqn=120) 03/15/18 21:05 Urine Cocaine Screen Negative ng/mL (Cutoff= 300) 03/15/18 21:05 U Marijuana (THC) Screen Negative ng/mL (Cutoff = 50) 03/15/18 21:05 Ur Drug Screen Interp See Below 03/15/18 21:05 Hepatitis A IgM Ab Reactive (Nonreactive) H 03/14/18 21:06 Hep Bs Antigen Nonreactive (Nonreactive) 03/14/18 21:06 Hep B Core IgM Ab Reactive (Nonreactive) H 03/14/18 21:06 Hepatitis C Ab Screen Reactive (Nonreactive) H 03/14/18 21:06 HIV Ag/Ab Combo Qual Nonreactive (Nonreactive) 03/14/18 21:06 Specimen Rejected Hemolyzed 03/14/18 21:06 Consult Discharge Plan - Plan Additional Instructions: Janet. will contact PT with the Follow up APT. Referrals: Salma Marie [Other] - 03/24/18 1:15 pm Mark Cruz MD [Partnered Physician] - (Web request sent on 03/16.) NONE,PCP [Primary Care Provider] - 03/24/18 1:15 pm (Scheduled an appointment with Dr. Moira Marsh in [place], [place] for patient hospital appointment) Prescriptions: Folic Acid 1 mg PO DAILY #30 tablet Thiamine (B-1) [Vitamin B-1] 100 mg PO DAILY #30 tablet
== END 2018-03-16 19:12 | disposition home or self-care (01) ==
LOC: 2NNU 20:07 → INTOOBSV 20:07 → 3ANU 03-15 15:12
PROVIDERS: ADMIT Internal Medicine; ATTEND Internal Medicine

== ENCOUNTER 2022-01-02 01:10 | Inpatient (IN) ==
[2022-01-02] MEDS ORDERED: *HR* HYDROmorphone (PF) 1 MG/ML SYRINGE IVP ONE (13:35)
[2022-01-02] MEDS ORDERED: Naloxone 0.4 MG/ML INJ IVP PRN (13:49)
[2022-01-02] MEDS ORDERED: Acetaminophen 325 MG TABLET PO PRN (13:49)
[2022-01-02] MEDS: Ringers Solution, Lactated 1,000 ML IVC SCH (14:17)
[2022-01-02] MEDS: *HR* Heparin 5,000 UNIT/ML VIAL SQ SCH ×3 (14:17→22:11)
[2022-01-02] MEDS: *HR* OxyCODONE Immed Rel 5 MG TABLET PO PRN ×2 (15:18→22:09)
[2022-01-02] MEDS: CeFAZolin 2,000 MG/120 ML BAG IVPB SCH (15:19)
[2022-01-02 16:28] LABS: BUN/Creatinine Ratio 15 (6-26); Blood Urea Nitrogen 15 mg/dL (6-20); eGFR For African Americans > 60 (> 60); eGFR For Non-African Americans > 60 (> 60)
[2022-01-02] MEDS: hydrOXYzine pamoate 25 MG CAPSULE PO PRN (18:24)
[2022-01-02] MEDS: Vancomycin 1,500 MG/265 ML IV.SOLN IVPB SCH (18:24)
[2022-01-02] MEDS: *HR* HYDROcodone/Acet 5/325 mg TABLET PO PRN (18:28)
[2022-01-02 22:53] LABS: Amphetamine Screen,Urine Negative ng/mL (Cutoff=1000); Barbiturate Screen,Urine Negative ng/mL (Cutoff=200); Benzodiazepines Screen,Urine Negative ng/mL (Cutoff=200); Cannabinoid Screen,Urine Negative ng/mL (Cutoff = 50); Cocaine Screen,Urine Negative ng/mL (Cutoff= 300); Opiate Screen,Urine Negative ng/mL (Cutoff=300); Phencyclidine Screen,Urine Negative ng/mL (Cutoff=25)
[2022-01-03] MEDS: Ringers Solution, Lactated 1,000 ML IVC SCH (00:07)
[2022-01-03] MEDS: CeFAZolin 2,000 MG/120 ML BAG IVPB SCH ×2 (00:07→09:01)
[2022-01-03] MEDS: *HR* Heparin 5,000 UNIT/ML VIAL SQ SCH ×3 (05:31→22:51)
[2022-01-03] MEDS: *HR* OxyCODONE Immed Rel 5 MG TABLET PO PRN (05:31)
[2022-01-03] MEDS: Vancomycin 1,500 MG/265 ML IV.SOLN IVPB SCH ×2 (05:31→17:13)
[2022-01-03] MEDS: *HR* HYDROmorphone (PF) 1 MG/ML SYRINGE IVP PRN ×3 (11:14→23:13)
[2022-01-03 13:40] LABS: Basophils # 0.1 K/mcL (0.0-0.2); Basophils % 0.8 %; Eosinophils # 0.6 K/mcL (0.0-0.6); Eosinophils % 5.7 %; Hematocrit 38.2 % (37.5-50.1); Hemoglobin 12.3 g/dL (12.9-16.9); Immature Granulocytes % 0.6 % (0-4); Lymphocytes # 2.1 K/mcL (0.6-4.6); Lymphocytes % 22.1 %; Mean Corpuscular HGB Conc 32.2 g/dL (31.6-35.5); Mean Corpuscular Hemoglobin 29.5 pg (28.0-33.3); Mean Corpuscular Volume 91.6 fL (83.0-100.0); Mean Platelet Volume 9.1 fL (9.4-12.4); Monocytes # 0.6 K/mcL (0.0-1.3); Monocytes % 6.6 %; Neutrophils # 6.2 K/mcL (1.6-8.9); Platelet Count 465 K/mcL (140-400); Red Blood Count 4.17 M/mcL (4.19-5.50); Red Cell Distribution Width 13.8 % (11.5-14.5); Segmented Neutrophils % 64.2 %; White Blood Count 9.6 K/mcL (4.3-11.1)
[2022-01-03 13:58] LABS: Alanine Aminotransferase 11 Units/L (7-52); Albumin 3.3 g/dL (3.5-5.7); Albumin/Globulin Ratio 0.9 (1.1-2.2); Alkaline Phosphatase 41 Units/L (34-104); Aspartate Amino Transferase 13 Units/L (13-39); BUN/Creatinine Ratio 14 (6-26); Bilirubin,Total 0.3 mg/dL (0.3-1.0); Blood Urea Nitrogen 13 mg/dL (6-20); Calcium 8.7 mg/dL (8.6-10.3); Carbon Dioxide 26 mEq/L (23-29); Chloride 105 mEq/L (98-107); Globulin 3.7 g/dL (2.4-3.5); Glucose 127 mg/dL (70-105); Osmolality,Calculated 288 (280-300); Potassium 3.8 mEq/L (3.5-5.1); Sodium 138 mEq/L (136-145); eGFR For African Americans > 60 (> 60); eGFR For Non-African Americans > 60 (> 60)
[2022-01-03] MEDS: Cefepime HCl 2,000 MG in 0.9 % Sodium Chloride 10 ML IVP SCH ×2 (17:15→22:52)
[2022-01-03] MEDS: hydrOXYzine pamoate 25 MG CAPSULE PO PRN (22:51)
[2022-01-04] MEDS: *HR* HYDROcodone/Acet 5/325 mg TABLET PO PRN ×4 (02:40→23:28)
[2022-01-04] MEDS: *HR* HYDROmorphone (PF) 1 MG/ML SYRINGE IVP PRN ×3 (05:19→18:23)
[2022-01-04] MEDS: *HR* Heparin 5,000 UNIT/ML VIAL SQ SCH ×3 (05:19→20:01)
[2022-01-04] MEDS: Vancomycin 1,500 MG/265 ML IV.SOLN IVPB SCH (07:35)
[2022-01-04] MEDS: Cefepime HCl 2,000 MG in 0.9 % Sodium Chloride 10 ML IVP SCH ×3 (10:13→23:28)
[2022-01-04] MEDS: Vancomycin 1,750 MG/517.5 ML IV.SOLN IVPB SCH ×2 (10:14→20:01)
[2022-01-04 10:43] LABS: Basophils # 0.1 K/mcL (0.0-0.2); Basophils % 1.3 %; Eosinophils # 0.5 K/mcL (0.0-0.6); Eosinophils % 5.7 %; Hemoglobin 12.8 g/dL (12.9-16.9); Immature Granulocytes % 0.5 % (0-4); Lymphocytes % 23.8 %; Mean Corpuscular Hemoglobin 29.5 pg (28.0-33.3); Mean Corpuscular Volume 92.2 fL (83.0-100.0); Monocytes # 0.4 K/mcL (0.0-1.3); Monocytes % 4.8 %; Neutrophils # 5.5 K/mcL (1.6-8.9); Platelet Count 508 K/mcL (140-400); Red Blood Count 4.34 M/mcL (4.19-5.50); Red Cell Distribution Width 13.7 % (11.5-14.5); Segmented Neutrophils % 63.9 %; White Blood Count 8.5 K/mcL (4.3-11.1)
[2022-01-04 11:06] LABS: BUN/Creatinine Ratio 14 (6-26); Blood Urea Nitrogen 13 mg/dL (6-20); Carbon Dioxide 27 mEq/L (23-29); Chloride 105 mEq/L (98-107); Glucose 118 mg/dL (70-105); Osmolality,Calculated 289 (280-300); Potassium 4.4 mEq/L (3.5-5.1); Sodium 139 mEq/L (136-145); eGFR For African Americans > 60 (> 60); eGFR For Non-African Americans > 60 (> 60)
[2022-01-04 13:03] LABS: Hepatitis B Surface Antibody 292.19 mIU/mL
[2022-01-04 13:15] LABS: Hepatitis B Surface Antigen Nonreactive (Nonreactive)
[2022-01-04 13:43] LABS: HIV-1&2 Antibody & p24 Ag Nonreactive (Nonreactive)
[2022-01-04 15:18] LABS: Hepatitis C Virus Antibody Reactive (Nonreactive)
[2022-01-04] MEDS ORDERED: Nicotine 2 MG GUM BC PRN (16:49)
[2022-01-04] MEDS: hydrOXYzine pamoate 25 MG CAPSULE PO PRN (17:39)
[2022-01-04] MEDS: Ondansetron 4 MG/2 ML VIAL IVP PRN ×2 (17:39→22:08)
[2022-01-04] MEDS: Nicotine 21 MG PATCH.TD24 TD SCH (17:40)
[2022-01-05] MEDS: *HR* HYDROmorphone (PF) 1 MG/ML SYRINGE IVP PRN ×4 (00:28→18:54)
[2022-01-05] MEDS: *HR* Heparin 5,000 UNIT/ML VIAL SQ SCH ×3 (04:28→21:43)
[2022-01-05 04:38] LABS: Basophils # 0.1 K/mcL (0.0-0.2); Basophils % 1.2 %; Eosinophils # 0.6 K/mcL (0.0-0.6); Eosinophils % 5.1 %; Hematocrit 37.8 % (37.5-50.1); Immature Granulocytes % 0.7 % (0-4); Lymphocytes # 3.2 K/mcL (0.6-4.6); Lymphocytes % 27.6 %; Mean Corpuscular HGB Conc 31.7 g/dL (31.6-35.5); Mean Corpuscular Volume 91.3 fL (83.0-100.0); Mean Platelet Volume 10.8 fL (9.4-12.4); Monocytes # 0.7 K/mcL (0.0-1.3); Monocytes % 6.3 %; Neutrophils # 6.9 K/mcL (1.6-8.9); Platelet Count 417 K/mcL (140-400); Red Blood Count 4.14 M/mcL (4.19-5.50); Red Cell Distribution Width 13.7 % (11.5-14.5); Segmented Neutrophils % 59.1 %; White Blood Count 11.7 K/mcL (4.3-11.1)
[2022-01-05 04:59] LABS: BUN/Creatinine Ratio 14 (6-26); Blood Urea Nitrogen 13 mg/dL (6-20); Calcium 8.8 mg/dL (8.6-10.3); Carbon Dioxide 25 mEq/L (23-29); Chloride 107 mEq/L (98-107); Glucose 101 mg/dL (70-105); Osmolality,Calculated 286 (280-300); Sodium 138 mEq/L (136-145); eGFR For African Americans > 60 (> 60); eGFR For Non-African Americans > 60 (> 60)
[2022-01-05] MEDS: Nicotine 21 MG PATCH.TD24 TD SCH (08:29)
[2022-01-05] MEDS: Vancomycin 1,750 MG/517.5 ML IV.SOLN IVPB SCH ×2 (08:30→23:07)
[2022-01-05] MEDS: Cefepime HCl 2,000 MG in 0.9 % Sodium Chloride 10 ML IVP SCH ×3 (08:30→23:06)
[2022-01-05] MEDS: *HR* HYDROcodone/Acet 5/325 mg TABLET PO PRN ×2 (10:34→18:16)
[2022-01-05] MEDS: amLODIPine 5 MG TABLET PO SCH (12:57)
[2022-01-05] MEDS: hydrOXYzine pamoate 25 MG CAPSULE PO PRN (18:16)
[2022-01-06] MEDS: hydrOXYzine pamoate 25 MG CAPSULE PO PRN ×3 (00:13→16:33)
[2022-01-06] MEDS: *HR* HYDROcodone/Acet 5/325 mg TABLET PO PRN ×3 (00:14→16:33)
[2022-01-06] MEDS: *HR* HYDROmorphone (PF) 1 MG/ML SYRINGE IVP PRN ×4 (00:58→18:32)
[2022-01-06] MEDS: *HR* Heparin 5,000 UNIT/ML VIAL SQ SCH ×3 (03:40→20:27)
[2022-01-06] MEDS: Cefepime HCl 2,000 MG in 0.9 % Sodium Chloride 10 ML IVP SCH (09:04)
[2022-01-06] MEDS: amLODIPine 5 MG TABLET PO SCH (09:08)
[2022-01-06] MEDS: Vancomycin 1,750 MG/517.5 ML IV.SOLN IVPB SCH (09:11)
[2022-01-06] MEDS: Nicotine 21 MG PATCH.TD24 TD SCH (12:26)
[2022-01-06 12:52] LABS: Basophils # 0.1 K/mcL (0.0-0.2); Basophils % 1.3 %; Eosinophils # 0.4 K/mcL (0.0-0.6); Eosinophils % 3.7 %; Hematocrit 42.2 % (37.5-50.1); Hemoglobin 13.2 g/dL (12.9-16.9); Immature Granulocytes % 0.7 % (0-4); Lymphocytes # 2.9 K/mcL (0.6-4.6); Lymphocytes % 26.2 %; Mean Corpuscular HGB Conc 31.3 g/dL (31.6-35.5); Mean Corpuscular Hemoglobin 29.3 pg (28.0-33.3); Mean Corpuscular Volume 93.8 fL (83.0-100.0); Mean Platelet Volume 8.9 fL (9.4-12.4); Monocytes # 0.6 K/mcL (0.0-1.3); Monocytes % 5.1 %; Neutrophils # 6.9 K/mcL (1.6-8.9); Platelet Count 575 K/mcL (140-400); White Blood Count 10.9 K/mcL (4.3-11.1)
[2022-01-06 13:31] LABS: BUN/Creatinine Ratio 13 (6-26); Blood Urea Nitrogen 13 mg/dL (6-20); Calcium 9.2 mg/dL (8.6-10.3); Carbon Dioxide 29 mEq/L (23-29); Chloride 106 mEq/L (98-107); Glucose 69 mg/dL (70-105); Osmolality,Calculated 290 (280-300); Potassium 4.5 mEq/L (3.5-5.1); Sodium 141 mEq/L (136-145); eGFR For African Americans > 60 (> 60); eGFR For Non-African Americans > 60 (> 60)
[2022-01-06] MEDS: levoFLOXacin 750 MG TABLET PO SCH (16:32)
[2022-01-06] MEDS: Doxycycline 100 MG in 0.9 % Sodium Chloride Mini Bag 100 ML IVPB SCH (18:35)
[2022-01-07] MEDS: *HR* HYDROmorphone (PF) 1 MG/ML SYRINGE IVP PRN (00:27)
[2022-01-07] MEDS: *HR* HYDROcodone/Acet 5/325 mg TABLET PO PRN (05:43)
[2022-01-07] MEDS: Doxycycline 100 MG in 0.9 % Sodium Chloride Mini Bag 100 ML IVPB SCH (05:44)
[2022-01-07] MEDS: *HR* Heparin 5,000 UNIT/ML VIAL SQ SCH (05:56)
[2022-01-07 06:03] LABS: Basophils # 0.2 K/mcL (0.0-0.2); Basophils % 1.4 %; Eosinophils # 0.6 K/mcL (0.0-0.6); Hematocrit 40.4 % (37.5-50.1); Hemoglobin 13.1 g/dL (12.9-16.9); Immature Granulocytes % 0.9 % (0-4); Lymphocytes # 3.3 K/mcL (0.6-4.6); Lymphocytes % 28.4 %; Mean Corpuscular HGB Conc 32.4 g/dL (31.6-35.5); Mean Corpuscular Hemoglobin 29.6 pg (28.0-33.3); Mean Corpuscular Volume 91.2 fL (83.0-100.0); Mean Platelet Volume 8.8 fL (9.4-12.4); Monocytes # 0.6 K/mcL (0.0-1.3); Monocytes % 5.3 %; Neutrophils # 6.8 K/mcL (1.6-8.9); Platelet Count 541 K/mcL (140-400); Red Blood Count 4.43 M/mcL (4.19-5.50); Red Cell Distribution Width 14.3 % (11.5-14.5); White Blood Count 11.5 K/mcL (4.3-11.1)
[2022-01-07 06:24] LABS: BUN/Creatinine Ratio 15 (6-26); Blood Urea Nitrogen 15 mg/dL (6-20); Calcium 8.9 mg/dL (8.6-10.3); Carbon Dioxide 25 mEq/L (23-29); Chloride 107 mEq/L (98-107); Glucose 84 mg/dL (70-105); Osmolality,Calculated 288 (280-300); Potassium 4.1 mEq/L (3.5-5.1); Sodium 139 mEq/L (136-145); eGFR For African Americans > 60 (> 60); eGFR For Non-African Americans > 60 (> 60)
[2022-01-07] MEDS: amLODIPine 5 MG TABLET PO SCH (07:53)
[2022-01-07] MEDS: levoFLOXacin 750 MG TABLET PO SCH (07:53)
[2022-01-07] MEDS: Nicotine 21 MG PATCH.TD24 TD SCH (07:54)
[2022-01-07 09:52] VITALS: BP 131/91; PULSE 89; TEMP 98.2; O2SAT 99
== END 2022-01-07 12:13 | disposition home or self-care (01) | DRG 383 ==
LOC: 3ANU → SUATTDRO 10:49
PROVIDERS: ADMIT Student in an Organized Health Care Education/Training Program; ATTEND Hospitalist